=== PATIENT | male | born 1985 ===

== ENCOUNTER 2019-06-13 12:34 | Emergency (ER) | payer OTHER ==
--- NOTE | 2019-06-13 12:51 | UC ---
Laceration HPI - HPI Summary HPI Summary: 33 yo male presents with RIGHT index finger laceration. He tells me that just [employer] he was cleaning a glass and it broke and he sustained a laceration to his right index finger. Washed the area and came to . Unsure date of last tetanus. - History Of Current Complaint Stated Complaint: FINGER LACERATION Time Seen by Provider: 06/13/19 12:51 Hx Obtained From: Patient Laceration Location: Finger Mechanism Of Injury: Sharp Trauma Onset/Duration: Sudden Onset - Allergies/Home Medications Allergies/Adverse Reactions: Allergies Allergy/AdvReac Type Severity Reaction Status Date / Time No Known Allergies Allergy Verified 06/13/19 12:45 Home Medications: Home Medications NK [No Home Medications Reported] 06/13/19 [History Confirmed 06/13/19] PMH/Surg Hx/FS Hx/Imm Hx - Additional Past Medical History Additional PMH: None - Surgical History Surgical History: None - Family History Known Family History: Positive: None - Social History Occupation: Employed Full-time Lives: With Family Alcohol Use: Occasionally Substance Use Type: None Smoking Status (MU): Never Smoked Tobacco Review of Systems All Other Systems Reviewed And Are Negative: No Constitutional: Positive: Negative Skin: Positive: Other - Finger laceration Respiratory: Positive: Negative Cardiovascular: Positive: Negative Neurovascular: Positive: Negative Musculoskeletal: Positive: Negative Neurological/Mental Status: Positive: Negative Psychological: Positive: Negative Physical Exam - Summary Physical Exam Summary: GENERAL: NAD. WDWN. No pain distress. SKIN: RIGHT INDEX FINGER: radial aspect of proximal phalanx with partial thickness 2.0cm linear laceration. 3mm width. Scant active bleeding. No tendon or bony involvement. CHEST: No accessory muscle use. Breathing comfortably and in no distress. CV: Pulses intact. Cap refill <2seconds MSK: FROM right index MCP, PIP, and DIP NEURO: Alert. PSYCH: Age appropriate behavior. Triage Information Reviewed: Yes Vital Signs: Vital Signs: Temp Pulse Resp BP Pulse Ox 98.4 F 84 18 158/84 96 06/13/19 12:42 06/13/19 12:42 06/13/19 12:42 06/13/19 12:42 06/13/19 12:42 Vital Signs Reviewed: Yes Laceration Repair - Laceration Repair 1 Description: Linear Laceration Size After Repair: Length (cm) - 2.0 Irrigation With Pressure Irrigation Device: Yes Closure Material: Sutures Closure Method: Single Layer Suture Of: Skin Suture Type: Prolene - 5-0 Laceration Course/Dx - Course/Dx Course Of Treatment: The procedure was explained to the pt and all questions were answered. A time out was performed, witnessed, and signed. The area was irrigated with 150mL sterile saline. 1mL of 2% lidocaine without epi was administered and good anesthetization was achieved. The wound was explored. In the usual sterile fashion, FIVE 5-0 prolene interrupted sutures were placed. Homeostasis achieved. The wound was bandaged with telfa . Pt tolerated procedure well. tdap updated today - Diagnosis Provider Diagnosis: Finger laceration Discharge ED - Sign-Out/Discharge Documenting (check all that apply): Patient Departure All imaging exams completed and their final reports reviewed: No Studies - Discharge Plan Condition: Stable Disposition: HOME Patient Education Materials: Finger Laceration (ED) Referrals: No Primary Care Phys,NOPCP [Primary Care Provider] - Additional Instructions: 1) Please keep the area bandage, clean, dry, and intact for the next 24- 48hours. Then change the bandage daily until sutures are removed. 2) If you develop a fever, colored or thick discharge, increased pain or swelling - please call your PCP or return for a wound check. 3) Please return in 10-14 days to have your FIVE sutures removed. - Billing Disposition and Condition Condition: STABLE Disposition: Home
[2019-06-13] MEDS ORDERED: Lidocaine 2% PF * 5 ML VIAL INJ ONE (12:53)
[2019-06-13] MEDS ORDERED: Tetan/Diph/Pertus SYR(Tdap)* 0.5 ML SYR(BOOSTRIX) use SYR contains LATEX IM ONE (12:53)
== END 2019-06-13 13:50 | disposition home or self-care (01) ==
LOC: UCEAST 12:34
DX: S61.210A Laceration without foreign body of right index finger without damage to nail, initial encounter (principal); W25.XXXA Contact with sharp glass, initial encounter; Y93.G1 Activity, food preparation and clean up; Y92.9 Unspecified place or not applicable; Z23 Encounter for immunization
CPT/HCPCS: 12001; 90715; 99201; G0463